=== PATIENT | female | born 1975 | race Caucasian/White ===

== ENCOUNTER 2016-11-10 11:36 | Emergency (ER) | payer SELFPAY ==
[~2016-11-10] VITALS: Ht 152.4 cm; Wt 90.7 kg
[2016-11-10 11:54] VITALS: BP 134/82
== END 2016-11-10 14:05 | disposition home or self-care (01) ==
LOC: ED 11:36
DX: M25.562 Pain in left knee (principal); M25.561 Pain in right knee; R03.0 Elevated blood-pressure reading, without diagnosis of hypertension